=== PATIENT | male | born 1995 | race Caucasian/White ===

== ENCOUNTER 2020-09-08 19:09 | Emergency (ER) | payer OTHER ==
[~2020-09-08] VITALS: Ht 172.7 cm; Wt 99.8 kg
[2020-09-08 19:24] VITALS: BP 115/92
--- NOTE | 2020-09-08 19:26 | NUR ---
TO LOBBY A/W BED AMBULATORY
--- NOTE | 2020-09-08 19:41 | NUR ---
PT AMBULATED TO BED 6
--- NOTE | 2020-09-08 19:45 | NUR ---
PATIENT PRESENTS TO ED WITH C/O ABDOMINAL/PIGASTRIC PAIN . PT STATES " I THINK I HAVE AN ULCER IN MY STOMACH" . SKIN IS PINK/WARM/DRY; AAOX4 WITH EVEN AND STEADY GAIT; LUNGS CLEAR BL; HR EVEN AND REGULAR; PT DENIES ANY FEVER, CP, SOB, OR COUGH AT THIS TIME; PATIENT STATES PAIN OF 10/10 AT THIS TIME; VSS; PATIENT POSITIONED FOR COMFORT; HOB ELEVATED; BEDRAILS UP X2; BED DOWN. ER MD MADE AWARE OF PT STATUS. PMH : ACID REFLUX, GALLSTONES NKDA
[2020-09-08] MEDS ORDERED: MORPHINE SULFATE 4 MG/ML SYR IVP ONE (20:10)
[2020-09-08] MEDS ORDERED: PANTOPRAZOLE 40 MG INJ VIAL IVP ONE (20:10)
[2020-09-08] MEDS ORDERED: NACL 0.9% 1,000 ML IV ONE (20:10)
[2020-09-08] MEDS ORDERED: ONDANSETRON 4 MG/2 ML VIAL IVP ONE (20:10)
--- NOTE | 2020-09-08 20:25 | NUR ---
Simi michael in [facility] - 09/08/20 at 202 by ABE PT REFUSED TO HAVE LABS DRAWN
--- NOTE | 2020-09-08 20:25 | NUR ---
PT REFUSED TO HAVE LABS DRAWN
[2020-09-08 20:43] LABS: BASOPHILS # (AUTO) 0.1 K/uL (0.00-0.22); BASOPHILS % (AUTO) 0.9 % (0.0-2.0); EOSINOPHILS % (AUTO) 0.3 % (0.0-4.0); HEMATOCRIT 46.9 % (36-52); HEMOGLOBIN 15.9 g/dL (12.0-18.0); LYMPHOCYTES # (AUTO) 1.5 K/uL (2.0-11.5); LYMPHOCYTES % (AUTO) 22.5 % (20.5-51.1); MEAN CORPUSCULAR HEMOGLOBIN 28 pg (27-31); MEAN CORPUSCULAR HGB CONC 34 g/dL (33-37); MEAN CORPUSCULAR VOLUME 82.8 fL (80-94); MONOCYTES # (AUTO) 0.6 K/uL (0.8-1.0); MONOCYTES % (AUTO) 8.8 % (1.7-9.3); NEUTROPHILS # (AUTO) 4.4 K/uL (1.8-7.7); NEUTROPHILS % (AUTO) 67.5 % (42.2-75.2); PLATELET COUNT (AUTO) 355 K/uL (140-450); RED BLOOD CELL COUNT(AUTO) 5.66 MIL/uL (4.20-6.10); RED CELL DISTRIBUTION WIDTH 13.5 % (11.6-13.7); WHITE BLOOD COUNT (AUTO) 6.6 K/uL (4.8-10.8)
--- NOTE | 2020-09-08 20:45 | NUR ---
MEDICATED FOR C/O PAIN
[2020-09-08 21:03] LABS: PROTHROMBIN TIME 10.6 secs (10.8-13.4)
[2020-09-08 21:10] LABS: CARBON DIOXIDE 29.5 mmol/L (21-32); CREATININE 1.1 mg/dL (0.6-1.3); POTASSIUM 3.5 mmol/L (3.5-5.1); TOTAL BILIRUBIN 0.7 mg/dL (0.0-1.0)
[2020-09-08] MEDS ORDERED: FAMO40TA12 PO (21:52)
[2020-09-08 21:57] VITALS: BP 115/92
--- NOTE | 2020-09-08 21:57 | NUR ---
EXAM RESULTS RETURNED, REVIEWED. DISCHARGED HOME, AMBULATORY, ACCOMPANIED BY FAMILY WITH ACI IN POSESSION WITH UNDERSTANDING EXPRESSED.
== END 2020-09-08 21:57 | disposition home or self-care (01) ==
LOC: MED 19:09
DX: R10.13 Epigastric pain (principal); R11.2 Nausea with vomiting, unspecified; R19.7 Diarrhea, unspecified
CPT/HCPCS: 36415; 80053; 83690; 85025; 85610; 86886; 86900; 86901; 96361; 96374; 96375; 99284; C9113; J2270; J2405; J7030